=== PATIENT | female | born 1950 | race Caucasian/White ===

== ENCOUNTER 2016-10-07 06:21 | Day surgery (SDC) | payer MEDICAID ==
[2016-10-07] MEDS ORDERED: LR 1,000 ML IV ONE (06:37)
[2016-10-07] MEDS ORDERED: PROPOFOL/EMULSION 500 MG/50 ML BOTTLE IV ONE (07:14)
[2016-10-07] MEDS ORDERED: LIDOCAINE 2% 100 MG/5 ML SYR ONE (07:14)
--- NOTE | 2016-10-07 08:33 | GPN ---
[f rep st] PROCEDURE NOTE PREPROCEDURE DIAGNOSIS: Screening for colon polyps. POSTPROCEDURE DIAGNOSIS: Colon polyps. PROCEDURE: Colonoscopy with snare. MEDICATION: Monitored anesthesia care. INDICATIONS: The patient is a 66-year-old female who is here for a screening colonoscopy. This is her 1st screening colonoscopy. The risks and benefits of the procedure were discussed with the dickson ent and consent obtained. Risks include, but not limited to, bleeding, perforation, and risks relat ed to sedation. The patient is ASA class 2. DESCRIPTION OF PROCEDURE: The adult colonoscope was advanced into the cecum. The ileocecal valve a nd appendiceal orifice appeared normal. There was a 1 cm flat carpeted polyp in the cecum. The aileen yp was removed in piecemeal fashion. 90% of the polyp was removed with the initial hot snare, and t hen the margins were removed using a combination of hot snare and electrocautery. There was no resi dual polyp at the end of the polypectomy procedure. There were a few scattered diverticula found in the left colon and these were small. In the descending colon, there was a 4 mm polyp which was rem bethanie with a cold snare polypectomy and retrieved for pathology. Retroflexed views in the rectum fabien wed grade 1 internal hemorrhoids. IMPRESSION: 1. Two colon polyps, one removed in a piecemeal fashion in the cecum. 2. Very mild left-sided diverticulosis. 3. Internal hemorrhoids. RECOMMENDATIONS: 1. Discharge home with escort. 2. Advance diet as tolerated. 3. Continue current medications. 4. Repeat colonoscopy at the hospital with monitored anesthesia care and possible APC in 6 months g iven piecemeal polypectomy of the cecal polyp. 5. Follow up with final pathology results, which should be available within 10 days. Thank you for allowing me to participate in the care of your patient. Please do not hesitate to virginia sergey with questions. /[id number]/MODL
== END 2016-10-07 09:10 | disposition home health service (06) ==
LOC: FSGY 06:21
PROVIDERS: ATTEND Internal Medicine Gastroenterology
PROC: 0DBH8ZX Excision of Cecum, Via Natural or Artificial Opening Endoscopic, Diagnostic (ICD-10-PCS; principal; 2016-10-07 07:30)
PROC: 0DBM8ZX Excision of Descending Colon, Via Natural or Artificial Opening Endoscopic, Diagnostic (ICD-10-PCS; principal; 2016-10-07 07:30)
DX: D12.0 Benign neoplasm of cecum (principal); D12.4 Benign neoplasm of descending colon; K57.30 Diverticulosis of large intestine without perforation or abscess without bleeding; K64.8 Other hemorrhoids; I10 Essential (primary) hypertension; R50.9 Fever, unspecified; Z79.82 Long term (current) use of aspirin
CPT/HCPCS: J2001; J2704

== ENCOUNTER 2016-10-07 14:57 | Emergency (ER) | payer MEDICAID ==
--- NOTE | 2016-10-07 15:35 | EDPHY ---
H & P Stated Complaint: colonoscopy with polyp removal today now with fever chills tachycardia Time Seen by Provider: 10/07/16 15:33 HPI/ROS: CHIEF COMPLAINT: Chills, fever following colonoscopy earlier today HISTORY OF PRESENT ILLNESS: The patient presents to the ED for evaluation of chills and fever following a colonoscopy earlier today. The patient denies any prior infectious symptoms of cough, congestion, sore throat, vomiting or diarrhea. The patient did have a typical migraine following her colonoscopy. She did receive IV sedation. The patient reports she had 2 polyps removed. REVIEW OF SYSTEMS: A comprehensive 10 point review of systems is otherwise negative aside from elements mentioned in the history of present illness. Source: Patient - Personal History Current Tetanus/Diphtheria Vaccine: Yes - Medical/Surgical History Hx Asthma: No Hx Chronic Respiratory Disease: No Hx Diabetes: No Hx Cardiac Disease: No Hx Renal Disease: No Hx Cirrhosis: No Hx Alcoholism: No Hx HIV/AIDS: No Hx Splenectomy or Spleen Trauma: No Other PMH: 1. Bipolar disorder. 2. Hysterectomy. 3. Appendectomy. 4. C- section. migraines/l oophorectomy - Social History Smoking Status: Never smoked - Physical Exam Exam: General Appearance: Alert, no distress Eyes: Pupils equal and round no pallor or injection ENT, Mouth: Mucous membranes moist Respiratory: There are no retractions, lungs are clear to auscultation Cardiovascular: Regular rate and rhythm Gastrointestinal: Abdomen is soft and nontender, no masses, bowel sounds normal Neurological: A&O, normal motor function, normal sensory exam, normal cranial nerves Skin: Warm and dry, no rashes Musculoskeletal: Neck is supple nontender Extremities: symmetrical, full range of motion Constitutional: Initial Vital Signs Temperature (C) 37.7 C 10/07/16 15:02 Heart Rate 116 H 10/07/16 15:02 Respiratory Rate 20 10/07/16 15:02 Blood Pressure 138/81 H 10/07/16 15:02 O2 Sat (%) 94 10/07/16 15:02 O2 Delivery Mode Room Air Allergies/Adverse Reactions: ibuprofen Allergy (Verified 10/07/16 15:00) migraine Home Medications: Medication Instructions Recorded Atorvastatin Calcium 09/08/16 Claritin 09/08/16 Emergen-C 1,000 mg Packet 09/08/16 Estrogel 09/08/16 LaMICtal 09/08/16 Lutein 09/08/16 Melatonin 09/08/16 Preservision Areds 2 Softgel 09/08/16 Ranitidine HCl 09/08/16 Turmeric Root Extract 09/08/16 Vitamin D3 09/08/16 Aspirin 325 mg (*) 10/07/16 Flexeril 10/07/16 Medical Decision Making ED Course/Re-evaluation: The patient presents to the ED with a low-grade fever following colonoscopy. The patient's vital signs do demonstrate a mild low-grade temperature of 37.7 and slight tachycardia. Her physical examination is unrevealing for a source of infection. The patient's has a slight leukocytosis and mild ketones in her urine. I do believe that she is slightly dehydrated from her colonoscopy. I believe the most likely etiology of her symptoms today was atelectasis given the timing. At this point time she has a benign abdominal examination. Blood cultures have been obtained. The patient has no acute physical complaints currently. The patient will be discharged home with instructions to return to the ED for persistent fever, pain, the development of any infectious symptoms or other concerns. Differential Diagnosis: Differential diagnosis considered includes atelectasis, urinary tract infection , bacteremia, medication side effect - Data Points Laboratory Results: Laboratory Results 10/07/16 16:15 10/07/16 16:15 10/07/16 10/07/16 10/07/16 16:15 16:15 16:15 WBC 13.74 10^3/uL H 10^3/uL (3.80-9.50) RBC 4.01 10^6/uL L 10^6/uL (4.18-5.33) Hgb 12.4 g/dL L g/dL (12.6-16.3) Hct 35.7 % L % (38.0-47.0) MCV 89.0 fL fL (81.5-99.8) MCH 30.9 pg pg (27.9-34.1) MCHC 34.7 g/dL g/dL (32.4-36.7) RDW 13.0 % % (11.5-15.2) Plt Count 278 10^3/uL 10^3/uL (150-400) MPV 9.5 fL fL (8.7-11.7) Neut % (Auto) 89.2 % H % (39.3-74.2) Lymph % (Auto) 6.0 % L % (15.0-45.0) [place] % (Auto) 4.1 % L % (4.5-13.0) Eos % (Auto) 0.0 % L % (0.6-7.6) Baso % (Auto) 0.2 % L % (0.3-1.7) Nucleat RBC Rel Count 0.0 % % (0.0-0.2) Absolute Neuts (auto) 12.25 10^3/uL H 10^3/uL (1.70-6.50) Absolute Lymphs (auto) 0.83 10^3/uL L 10^3/uL (1.00-3.00) Absolute Monos (auto) 0.56 10^3/uL 10^3/uL (0.30-0.80) Absolute Eos (auto) 0.00 10^3/uL L 10^3/uL (0.03-0.40) Absolute Basos (auto) 0.03 10^3/uL 10^3/uL (0.02-0.10) Absolute Nucleated RBC 0.00 10^3/uL 10^3/uL (0-0.01) Immature Gran % 0.5 % % (0.0-1.1) Immature Gran # 0.07 10^3/uL 10^3/uL (0.00-0.10) VBG Lactic Acid 1.1 mmol/L mmol/L (0.7-2.1) Sodium 135 mEq/L mEq/L (134-144) Potassium 4.3 mEq/L mEq/L (3.5-5.2) Chloride 100 mEq/L mEq/L (97-110) Carbon Dioxide 24 mEq/l mEq/l (22-31) Anion Gap 11 mEq/L mEq/L (8-16) BUN 12 mg/dL mg/dL (7-23) Creatinine 0.9 mg/dL mg/dL (0.6-1.0) Estimated GFR > 60 Glucose 108 mg/dL H mg/dL (70-100) Calcium 9.6 mg/dL mg/dL (8.5-10.4) Urine Color Urine Appearance Urine pH Ur Specific [place] Urine Protein Urine Ketones Urine Blood Urine Nitrate Urine Bilirubin Urine Urobilinogen Ur Leukocyte Esterase Ur Culture Indicated? Urine Glucose 10/07/16 15:40 WBC RBC Hgb Hct MCV MCH MCHC RDW Plt Count MPV Neut % (Auto) Lymph % (Auto) [place] % (Auto) Eos % (Auto) Baso % (Auto) Nucleat RBC Rel Count Absolute Neuts (auto) Absolute Lymphs (auto) Absolute Monos (auto) Absolute Eos (auto) Absolute Basos (auto) Absolute Nucleated RBC Immature Gran % Immature Gran # VBG Lactic Acid Sodium Potassium Chloride Carbon Dioxide Anion Gap BUN Creatinine Estimated GFR Glucose Calcium Urine Color YELLOW Urine Appearance CLEAR Urine pH 7.0 (5.0-7.5) Ur Specific [place] 1.017 (1.002-1.030) Urine Protein NEGATIVE (NEGATIVE) Urine Ketones 1+ H (NEGATIVE) Urine Blood NEGATIVE (NEGATIVE) Urine Nitrate NEGATIVE (NEGATIVE) Urine Bilirubin NEGATIVE (NEGATIVE) Urine Urobilinogen NEGATIVE EU EU (0.2-1.0) Ur Leukocyte Esterase NEGATIVE (NEGATIVE) Ur Culture Indicated? NOT INDICATED (NI) Urine Glucose NEGATIVE (NEGATIVE) Medications Given: Discontinued Medications Sodium Chloride (Ns) 1,000 mls @ 0 mls/hr IV ONCE ONE PRN Reason: Wide Open Stop: 10/07/16 16:22 Last Admin: 10/07/16 16:21 Dose: 1,000 mls Departure - Departure Disposition: Home, Routine, Self-Care Clinical Impression: Fever Condition: Good Instructions: Fever in Adults (ED) Additional Instructions: 1. Please return to the emergency department for persistently elevated temperature, the development of new pain, vomiting, cough or other concerns. 2. Please follow up with your primary care provider as scheduled. 3. Tylenol as needed for fever Referrals: Ryanne Rueda PA [Primary Care Provider] - As per Instructions
[2016-10-07 16:08] LABS: COLOR YELLOW; LEUKOCYTE ESTERASE,URINE NEGATIVE (NEGATIVE); NITRITE,URINE NEGATIVE (NEGATIVE)
[2016-10-07] MEDS ORDERED: NS 1,000 ML IV ONE (16:21)
[2016-10-07 16:31] LABS: % IMMATURE GRANULYOCYTES 0.5 % (0.0-1.1); ABSOLUTE IMMATURE GRANULOCYTES 0.07 10^3/uL (0.00-0.10); ADD DIFF? NO; ADD MORPH? NO; ADD SCAN? NO; ATYPICAL LYMPHOCYTE FLAG 0 (0-99); FRAGMENT RBC FLAG 0 (0-99); HEMATOCRIT 35.7 % (38.0-47.0); HEMOGLOBIN 12.4 g/dL (12.6-16.3); LEFT SHIFT FLG 10 (0-99); LIPEMIA HEMOLYSIS FLAG 90 (0-99); MEAN CELL HEMOGLOBIN 30.9 pg (27.9-34.1); MEAN CELL HEMOGLOBIN CONCENTR. 34.7 g/dL (32.4-36.7); MEAN PLATELET VOLUME 9.5 fL (8.7-11.7); PLATELET CLUMPS FLAG 0 (0-99); PLATELET COUNT 278 10^3/uL (150-400); RED BLOOD CELL COUNT 4.01 10^6/uL (4.18-5.33)
[2016-10-07 16:46] LABS: ANION GAP 11 mEq/L (8-16); CALCIUM 9.6 mg/dL (8.5-10.4); CARBON DIOXIDE 24 mEq/l (22-31); CHLORIDE 100 mEq/L (97-110); CREATININE 0.9 mg/dL (0.6-1.0); GLOMERULAR FILTRATION RATE > 60; GLUCOSE 108 mg/dL (70-100); POTASSIUM 4.3 mEq/L (3.5-5.2); SODIUM 135 mEq/L (134-144)
[2016-10-07 17:32] VITALS: BP 116/68; PULSE 80; RESP 16; TEMP 99.1; O2SAT 96
== END 2016-10-07 17:28 | disposition home or self-care (01) ==
DX: R50.9 Fever, unspecified (principal); Z79.82 Long term (current) use of aspirin

== ENCOUNTER → 2017-06-24 | Outpatient (CLI) | payer OTHER, MEDICAID | LOC: BHFA 10:00 | PROVIDERS: ATTEND Internal Medicine Cardiovascular Disease | DX: I35.9 Nonrheumatic aortic valve disorder, unspecified (principal) ==

== ENCOUNTER 2017-10-23 10:18 | Day surgery (SDC) | payer OTHER, MEDICAID ==
[2017-10-23] MEDS ORDERED: LR 1,000 ML IV ONE (10:43)
--- NOTE | 2017-10-23 11:36 | PDANEPAE ---
ANE History of Present Illness colonoscopy for polyps ANE Past Medical History - Cardiovascular History Hx Hypertension: Yes Hx Arrhythmias: No Hx Chest Pain: No Hx Coronary Artery / Peripheral Vascular Disease: No Hx CHF / Valvular Disease: No Hx Palpitations: Yes Cardiovascular History Comment: htn. hyperlipidemia. aortic insufficiency. hx of cp 2015. hx of palpitations 2017 - Pulmonary History Hx COPD: No Hx Asthma/Reactive Airway Disease: No Hx Recent Upper Respiratory Infection: No Hx Oxygen in Use at Home: No Hx Sleep Apnea: No Sleep Apnea Screening Result - Last Documented: Negative Pulmonary History Comment: on going "post nasal drip" since . Productive of mucous - Neurologic History Hx Cerebrovascular Accident: No Hx Seizures: No Hx Dementia: No Neurologic History Comment: occ migraine - Endocrine History Hx Diabetes: No - Renal History Hx Renal Disorders: No - Liver History Hx Hepatic Disorders: No - Neurological & Psychiatric Hx Hx Neurological and Psychiatric Disorders: Yes Neurological / Psychiatric History Comment: bipolar-on Rx - Cancer History Hx Cancer: No - Congenital Disorder History Hx Congenital Disorders: No - GI History Hx Gastrointestinal Disorders: Yes Gastrointestinal History Comment: acid reflux - Other Health History Other Health History: adhesions in pelvis-noted on hysterectomy - Chronic Pain History Chronic Pain: No - Surgical History Prior Surgeries: 06/2017 right great toe surgery with hardware. 10/07/16 colonoscopy with [facility]. appy. C section. hysterectomy. L oophorectomy ANE Review of Systems Review of systems is: negative Review of Systems: - Exercise capacity METS (RN): 4 METS ANE Patient History - Allergies Allergies/Adverse Reactions: ibuprofen Allergy (Verified 10/13/17 16:58) migraine - Home Medications Home medications: home medication list seen and reviewed Home Medications: LaMICtal 09/08/16 [Last Taken 10/23/17 07:00] Ranitidine HCl 09/08/16 [Last Taken 10/21/17] Herbals/Supplements -Info Only 10/13/17 [Last Taken 10/21/17] Estrogel TP DAILY 10/23/17 [Last Taken 10/23/17 07:00] Lisinopril PO DAILY 10/23/17 [Last Taken 10/23/17 07:00] - NPO status NPO Status: no food or drink >8 hours NPO Since - Liquids (Date): 10/23/17 NPO Since - Liquids (Time): 00:00 NPO Since - Solids (Date): 10/22/17 NPO Since - Solids (Time): 09:00 - Anes Hx Hx Anesthesia Complications (with details): fever - Smoking Hx Smoking Status: Never smoked - Family Anes Hx Family Anes Hx: none Family Hx Anesthesia Complications: none ANE Labs/Vital Signs - Vital Signs Blood Pressure: 119/84 Heart Rate: 73 Respiratory Rate: 16 O2 Sat (%): 96 Height: 162.56 cm Weight: 76.657 kg ANE Physical Exam - Airway Neck exam: FROM Mallampati Score: Class 3 Mouth exam: normal dental/mouth exam - Pulmonary Pulmonary: no respiratory distress - Cardiovascular Cardiovascular: regular rate and rhythym - ASA Status ASA Status: II ANE Anesthesia Plan Total IV Anesthesia: Yes
[2017-10-23] MEDS ORDERED: LIDOCAINE 2% 5 ML SDV ONE (12:21)
[2017-10-23] MEDS ORDERED: PROPOFOL/EMULSION 500 MG/50 ML BOTTLE IV ONE (12:21)
--- NOTE | 2017-10-23 12:21 | PDGENHP ---
History & Physical Chief Complaint: phx polyps History of Present Illness: polyps removed in piecemeal Pertinent Past, Social, Family History: no tobacco. no alcohol - quit 4 years ago. fhx - no colon cacner Relevant Physical Exam: a+ox3. CTA. S1S2,RRR. +BS, sosft nt Cardiorespiratory Assessment: class 2
--- NOTE | 2017-10-23 13:00 | GIREPORT ---
[facility] - Endoscopy Department Patient Name: Brayden Coughlin Procedure Date: 10/23/2017 12:00 PM Patient Type: Outpatient Attending MD/ ER Physician: Moriah Crouch Procedure: Colonoscopy Indications: Surveillance: Piecemeal removal of large sessile adenoma last colonosco py (< 3 yrs), High risk colon cancer surveillance: Personal history of adenom a (10 mm or greater in size) Providers: Luis Daniel Wakefield MD Medicines: Total IV Anesthesia (TIVA) = IV general Complications: No immediate complications. Estimated blood loss: Minimal. Description of Procedure: After obtaining informed consent, the scope was passed under direct vis ion. Throughout the procedure, the patient's blood pressure, pulse, and oxyg en saturations were monitored continuously. The Colonoscope with irrigatio n channel was introduced through the anus and advanced to the terminal il eum, with identification of the appendiceal orifice and IC valve. The colono scopy was performed without difficulty. The patient tolerated the procedure w ell. The quality of the bowel preparation was good. Findings: The digital rectal exam was normal. The terminal ileum appeared normal. A post polypectomy scar was found in the cecum. The scar tissue was hea lthy in appearance. There was no evidence of the previous polyp. Biopsies we re taken with a cold forceps for histology. Estimated blood loss was minim al. A 3 mm polyp was found in the transverse colon. The polyp was sessile. The polyp was removed with a piecemeal technique using a cold biopsy forcep s. Resection and retrieval were complete. Estimated blood loss was minimal . The exam was otherwise without abnormality. Estimated Blood Loss: Estimated blood loss was minimal. Post Op Diagnosis: - The examined portion of the ileum was normal. - Post-polypectomy scar in the cecum. Biopsied. - One 3 mm polyp in the transverse colon, removed piecemeal using a col d biopsy forceps. Resected and retrieved. - The examination was otherwise normal. Recommendation: - Await pathology results. - My office will call with the pathology result with 5-7 days. If you h ave not heard from my office by 12-14, do not assume the pathology is alyse l, please call [phone] to get the pathology results. - Repeat colonoscopy in 3 years for surveillance based on pathology res ults. - High fiber diet. - Patient has a contact number available for emergencies. The signs and symptoms of potential delayed complications were discussed with the pat ient. Return to normal activities tomorrow. Written discharge instructions we re provided to the patient. - Continue present medications. - Discharge patient to home (ambulatory). - Return to primary care physician as previously scheduled. - Thank you for allowing me to help in your patient's care. Do not hesi nicholson to call with any questions. Attending Participation: I personally performed the entire procedure. Ashu Cary M.D Luis Daniel Wakefield MD 10/23/2017 1:00:22 PM This report has been signed electronicallyMathew MD Ashu Number of Addenda: 0 Note Initiated On: 10/23/2017 12:00 PM Total Procedure Duration Time 0 hours 22 minutes 38 seconds [email or web address]
[2017-10-23] MEDS ORDERED: MEPERIDINE 25 MG/ML SYR IVP PRN (13:25)
[2017-10-23] MEDS ORDERED: ACETAMINOPHEN 500 MG TAB PO PRN (13:25)
[2017-10-23] MEDS ORDERED: fentaNYL 100 MCG/2 ML INJ IVP PRN (13:25)
[2017-10-23] MEDS ORDERED: NALOXONE HCL 0.4 MG/ML INJ IVP PRN (13:25)
[2017-10-23] MEDS ORDERED: oxyCODONE IR 5 MG TAB PO PRN (13:25)
[2017-10-23] MEDS ORDERED: DEXAMETHASONE 4 MG/ML VIAL IVP PRN (13:25)
[2017-10-23] MEDS ORDERED: ONDANSETRON 4 MG/2 ML VIAL IVP PRN (13:25)
--- NOTE | 2017-10-23 13:27 | POSTANESTH ---
Post Anesthetic Evaluation Cardiovascular Status: Normal, Stable, Similar to Pre-Op Cond Respiratory Status: Normal, Stable, Similar to Pre-op Cond. Level of Consciousness/Mental Status: Can Participate in Eval, Mildly Sleepy, Arousable Pain Control: Adequate, Prn Tx Ordered Nausea/Vomiting Control: Adequate, Prn Tx Ordered Complications Possibly Related to Anesthesia: None Noted
[2017-10-23 14:07] VITALS: BP 124/69
== END 2017-10-23 15:00 | disposition home or self-care (01) ==
LOC: FSGY 10:18
PROVIDERS: ATTEND Internal Medicine Gastroenterology
PROC: 0DBL8ZX Excision of Transverse Colon, Via Natural or Artificial Opening Endoscopic, Diagnostic (ICD-10-PCS; principal; 2017-10-23 12:00)
PROC: 0DBH8ZX Excision of Cecum, Via Natural or Artificial Opening Endoscopic, Diagnostic (ICD-10-PCS; principal; 2017-10-23 12:00)
DX: Z12.11 Encounter for screening for malignant neoplasm of colon (principal); D12.3 Benign neoplasm of transverse colon; I10 Essential (primary) hypertension; E78.5 Hyperlipidemia, unspecified; F31.9 Bipolar disorder, unspecified; Z86.010 Personal history of colon polyps
CPT/HCPCS: J2704